=== PATIENT | female | born 1960 | race Caucasian/White ===

== ENCOUNTER 2022-12-20 20:44 | Emergency (ER) | payer OTHER ==
[2022-12-20 20:52] VITALS: PULSE 90; RESP 18; TEMP 98.7; BMI 23.2
[2022-12-20 21:53] LABS: HEMATOCRIT 38.8 % (32.4-45.2); HEMOGLOBIN 13.4 G/dL (10.7-15.3); MCH 30.7 pg (25.7-33.7); MCHC 34.6 g/dl (32.0-36.0); MEAN CELL VOLUME 88.7 fl (80-96); MEAN PLT VOLUME 7.4 fl (7.5-11.1); PLATELET COUNT 229.8 10^3/uL (134-434); RBC 4.37 10^6/uL (3.60-5.2); RDW 13.5 % (11.6-15.6); WHITE BLOOD COUNT 7.6 10^3/uL (4.0-10.8)
[2022-12-20 21:57] LABS: PLATELET ESTIMATE ADEQUATE
[2022-12-20 22:01] LABS: ALBUMIN 4.3 g/dl (3.4-5.0); BILIRUBIN,TOTAL 1.1 mg/dl (0.2-1); CALCIUM 8.8 mg/dl (8.5-10); TOT PROT 7.1 g/dl (6.4-8.2)
[2022-12-20] MEDS ORDERED: HYDROCHLOROTHIAZIDE 25 MG TABLET (FP) PO ONE (22:07)
[2022-12-20] MEDS ORDERED: HYDROCHLOROTHIAZIDE 25 MG TABLET (FP) ONE (22:19)
[2022-12-20 22:21] VITALS: BP 139/92
== END 2022-12-20 22:25 | disposition home or self-care (01) ==
LOC: FER 20:44
DX: R03.0 Elevated blood-pressure reading, without diagnosis of hypertension (principal)
CPT/HCPCS: 36415; 80053; 85027; 93005; 99284-25